=== PATIENT | female | born 1970 | race Caucasian/White ===

== ENCOUNTER → 2017-09-26 | Outpatient (CLI) | payer MEDICAID ==
[2017-09-26 20:26] LABS: Basophils # (A) 0.1 k/uL (0-0.2); Basophils % (A) 1 %; Eosinophils # (A) 0.1 k/uL (0-0.7); Eosinophils % (A) 1 %; HCT 41.1 % (34.0-46.0); HGB 11.9 gm/dL (11.4-16.0); Hypochromasia Marked; Lymphocytes # (A) 1.5 k/uL (1.0-4.8); Lymphocytes % (A) 19 %; MCH 23.9 pg (25.0-35.0); MCV 82.3 fL (80.0-100.0); Monocytes # (A) 0.3 k/uL (0-1.0); Monocytes % (A) 4 %; Neutrophils % (A) 74 %; Platelet Count 399 k/uL (150-450); RDW 15.8 % (11.5-15.5); WBC 8.1 k/uL (3.8-10.6)
[2017-09-26 20:29] LABS: ALT 18 U/L (9-52); AST 16 U/L (14-36); Albumin 4.1 g/dL (3.5-5.0); Alkaline Phosphatase 86 U/L (38-126); Anion Gap 11 mmol/L; Blood Urea Nitrogen 10 mg/dL (7-17); Calcium 9.5 mg/dL (8.4-10.2); Carbon Dioxide 26 mmol/L (22-30); Chloride 104 mmol/L (98-107); Cholesterol 171 mg/dL (<200); Glucose 106 mg/dL (74-99); HDL Cholesterol 43 mg/dL (40-60); LDL Cholesterol,Calculated 111 mg/dL (0-99); Potassium 4.4 mmol/L (3.5-5.1); Sodium 141 mmol/L (137-145); Total Bilirubin 0.6 mg/dL (0.2-1.3); Total Protein 7.1 g/dL (6.3-8.2); Triglycerides 85 mg/dL (<150)
[2017-09-26 20:42] LABS: T4, Free (Free Thyroxine) 1.48 ng/dL (0.78-2.19)
== END | disposition home or self-care (01) ==
LOC: MMGSC 12:30
PROVIDERS: ATTEND Family Medicine
DX: Z00.00 Encounter for general adult medical examination without abnormal findings (principal)
CPT/HCPCS: 36415; 80053; 80061; 84439; 84443; 85025

== ENCOUNTER → 2017-11-18 | Outpatient (CLI) | payer MEDICAID ==
[2017-11-18 11:41] LABS: Anisocytosis Slight; HCT 38.1 % (34.0-46.0); HGB 11.8 gm/dL (11.4-16.0); Hypochromasia Slight; MCH 24.3 pg (25.0-35.0); MCV 78.3 fL (80.0-100.0); Mean Platelet Volume 6.5; Microcytosis Slight; Platelet Count 445 k/uL (150-450); RBC 4.87 m/uL (3.80-5.40); RDW 16.2 % (11.5-15.5); WBC 9.6 k/uL (3.8-10.6)
[2017-11-18 11:53] LABS: Anion Gap 15 mmol/L; Blood Urea Nitrogen 9 mg/dL (7-17); Carbon Dioxide 20 mmol/L (22-30); Chloride 106 mmol/L (98-107); Glucose 99 mg/dL (74-99); Potassium 4.2 mmol/L (3.5-5.1); Sodium 141 mmol/L (137-145)
== END | disposition home or self-care (01) ==
LOC: LABWHC1 11:15
PROVIDERS: ATTEND Internal Medicine Clinical Cardiac Electrophysiology
DX: I47.1 Supraventricular tachycardia (principal)
CPT/HCPCS: 36415; 80048; 85027

== ENCOUNTER 2017-11-27 06:07 | Day surgery (SDC) | payer MEDICAID ==
[2017-11-21 10:49] VITALS: BMI 45.0
[~2017-11-27 06:07] MED LIST: DEXAMETHASONE SOD PHOSPHATE 10 MG/ML 1 ML VIAL IV ONE; MORPHINE SULFATE 4 MG/ML SYRINGE IV PRN; ONDANSETRON 4 MG/2 ML VIAL IVP ONE
[2017-11-27] MEDS: SODIUM CHLORIDE 0.9% 1,000 ML IV SCH (06:47)
[2017-11-27] MEDS ORDERED: diphenhydrAMINE 50 MG/ML 1 ML VIAL ONE (07:14)
[2017-11-27] MEDS ORDERED: PROPOFOL 10 MG/ML 20 ML VIAL IV ONE (07:14)
[2017-11-27] MEDS ORDERED: MORPHINE SULFATE 10 MG/ML SYRINGE ONE (07:14)
[2017-11-27] MEDS ORDERED: fentaNYL (PF) 50 MCG/ML 2 ML AMP ONE (07:14)
[2017-11-27] MEDS ORDERED: ISOPROTERENOL 250 MCG/1.25 ML SYR IV ONE (07:14)
[2017-11-27] MEDS ORDERED: MIDAZOLAM 2 MG/2 ML VIAL ONE (07:14)
[2017-11-27] MEDS ORDERED: HEPARIN SODIUM,PORCINE 10,000 UNIT/ML 1 ML VIAL ONE (07:14)
[2017-11-27] MEDS ORDERED: LIDOCAINE 2% INJ 20 MG/ML SQ ONE ×2 (08:00→11:48)
[2017-11-27] MEDS ORDERED: HEPARIN SODIUM (1,000 UNIT/ML) 1,000 UNIT in SODIUM CHLORIDE 0.9% 1,000 ML IRRIGATION ONE (10:19)
[2017-11-27] MEDS ORDERED: LACTATED RINGERS 1,000 ML IV ONE (13:56)
[2017-11-27] MEDS ORDERED: ACETAMINOPHEN TAB 325 MG TAB PO PRN (14:18)
[2017-11-27] MEDS ORDERED: ACETAMINOPHEN IV (For NPO) 1,000 MG in EMPTY BAG 1 BAG IVPB ONE (15:00)
--- NOTE | 2017-11-27 15:40 | CE ---
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 She has had several ER admissions for this condition and she is brought in for diagnostic EP study and SVT ablation. Patient is brought to the EP lab in a fasting state. Written informed consent was obtained prior to the procedure. The right and left groins were prepped and draped as per protocol; 1% lidocaine was used for local anesthesia. Both groins were prepped and draped as per protocol. Three venous sheaths were placed in the right femoral vein and one venous sheath in the left femoral vein. Via these, diagnostic catheters were placed in the heart (high right atrial catheter, HIS bundle catheter, RV catheter and CS catheter). Sinus cycle length 876 milliseconds. MO interval 150 milliseconds, QRS 86 milliseconds, QT 418 milliseconds. AH interval 67 milliseconds, HV interval 44 milliseconds. Sinus node recovery times of 600, 500, and 400 milliseconds were 1001, 1108 and 1063 milliseconds. Corresponding corrected sinus node recovery times were within normal limits. AV node Wenckebach block 310 milliseconds. Slow pathway was noted when pacing the high right atrium at 350 milliseconds, but SVT was not induced. VA Wenckebach block 340 milliseconds. AV node ERP 600/280 milliseconds and when pacing the coronary sinus, SVT was very easily inducible with straight pacing. The tachycardia cycle length was 370 milliseconds. Pacing from the ventricle resulted in termination of the tachycardia repeatedly. However, the tachycardia had a short septal time of less 60 milliseconds consistent with AV osito reentry. Therefore, the patient had clear evidence of antegrade slow pathway conduction as well as an SVT with a very short septal time of less than 60 milliseconds, but entrainment with the RV pacing was not possible and therefore initially a VAV response and a long PPI could not be demonstrated. However, later during the ablation, when she started experiencing more SVT, we were able to demonstrate a VAV response and confirm that this was reentry consistent with the diagnosis. In addition the post pacing interval was long. Initially a 4 mm tip ablation catheter was used, later we switched to an irrigated tip catheter. Finally, once again, we switched to a 4 mm tip guided catheter. Initially, slow pathway mapping was performed in the posterior septal area well below the coronary sinus with small fractionated electrograms noted here. RF ablation here resulted in elimination of slow pathway and SVT for about 10 minutes but thereafter it recurred. Next RF ablation was then applied, mapping was performed outside the floor of the coronary sinus os and RF ablation was applied here. Once again, elimination of slow pathway, but return within 10 minutes or so on Isuprel. RF ablation was applied at the roof of the coronary sinus and once again with a similar response with initial success followed by recurrence. Mapping was performed off the septum along the tricuspid anulus and once again RF ablation was applied at this site with a 4 mm tip ablation catheter. Since tachycardia was recurrent, we proved that this was AV osito reentry once again with a VAV response and a long post pacing interval in a short septal time. Mapping above the coronary sinus, above its roof demonstrated that there was somewhat of a cul-de-sac in that area and that was carefully mapped. In this area with mechanical pressure. junctional beats are noted. RF ablation was applied here but junctional rhythm could not be induced. Once again, transient success for 10 minutes and then recurrence of tachycardia was noted. At this point, intracardiac echocardiography was performed. The interatrial septum was identified. Left to right transseptal catheterization was performed. RA pressure was 12 1 mmHg, LV pressure was less than 13 mmHg. An irrigated tip catheter was placed in the left atrium and the left posterior septal area was mapped and RF ablation was applied here. However, at this site even transient success could not be achieved. Therefore, the catheter was removed, heparin was discontinued due and I went back into the right atrium for further mapping. Following this, the mid septal area was mapped, RF ablation was applied and this resulted in short episodes of AV osito reentry with the longer cycle length. Finally, RF ablation lesions were applied in areas of good electrograms in the mid septal as well as the junction of the mid and anterior septal region. Following that, the tachycardia was completely eliminated and could not be reinduced. AV node Wenckebach block at the end of this RF ablation (now with a 4 mm tip nonirrigated catheter), there was no evidence for slow pathway conduction and AV osito reentry could not be induced. Please note that when ablating the mid septal and anteroseptal areas, a 4 mm tip ablation catheter was used, not an irrigated tip catheter. Irrigated tip catheter was used closer to the coronary sinus and the left atrium. Thereafter, we could not induce AV osito reentry. However, with atrial extra stimulation as well as a straight pacing on high-dose Isuprel, we were able to induce any SVT with a concentric activation of the coronary sinus, but with a delayed electrograms in the HIS and the high right atrium. Therefore, the activation pattern was very different from the original tachycardia. In addition, this was a long RP tachycardia. Therefore, ventricular pacing maneuvers were performed to differentiate between atypical AV osito reentry versus coronary sinus atrial tachycardia. This tachycardia in the absence of Isuprel demonstrated AV node Wenckebach block phenomenon, 2) A VA AV response was noted. There was clear an acceleration of the HIS electrograms with V pacing as well as of the high right atrial electrograms, but not the coronary sinus os electrograms. However, since the AV node was accelerated to the ventricular pacing cycle length, the VA AV response proved that this was not atypical AV osito reentry. At the end of the procedure Isuprel was stopped. All catheters removed and she was transferred to observation/telemetry. RESULT: Diagnostic EP study revealin. 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 2. The slow pathway was in the mid septal/anteroseptal region, but ablation was performed in a stepwise manner as described above. Hence, the mapping ablation procedure took 5 hours because of the proximity of the slow pathway to the HIS bundle area, as well as mapping of the left and right atrium. The slow pathway was completely eliminated at the end of the procedure. 3. A second tachycardia was induced following successful ablation of AV osito reentry and it was proven that this was not atypical AV osito reentry. This was a long RP tachycardia , and with RV pacing VAAV response was noted, but this was not a targeted for ablation at this time. PLAN: I will treat her with metoprolol succinate only for 2 weeks and then discontinue this. If she continues to have episodes of palpitations, then she will be brought back later after about 6 weeks to allow for healing of the RF lesions, for mapping of the coronary sinus atrial tachycardia. I may have to access the coronary sinus from the subclavian route during that procedure. 325 mg of aspirin for one month, then stop MMODL / IJN: [id number] / [facility]
[2017-11-27] MEDS: HYDROcodone/APAP 5-325MG 1 EACH TAB PO PRN ×2 (15:51→20:07)
[2017-11-27] MEDS: LACTATED RINGERS 1,000 ML IV SCH ×2 (17:55→20:10)
[2017-11-28] MEDS: SODIUM CHLORIDE 0.9% 1,000 ML IV SCH (03:56)
[2017-11-28] MEDS ORDERED: LEVOTHYROXINE 125 MCG TAB PO SCH (06:30)
[2017-11-28 08:34] VITALS: RESP 18
[2017-11-28] MEDS ORDERED: ASPIRIN 325 MG TAB PO SCH (09:00)
[2017-11-28] MEDS ORDERED: METOPROLOL SUCCINATE (ER) 50 MG TAB.ER.24H PO SCH (09:00)
[2017-11-28 11:52] VITALS: BP 125/57; PULSE 84; TEMP 98.8
== END 2017-11-28 13:50 | disposition home or self-care (01) ==
LOC: CATHEP 06:07 → 3OBS 14:20 → CATHEP 11-28 13:50
PROVIDERS: ATTEND Internal Medicine Clinical Cardiac Electrophysiology
DX: I47.1 Supraventricular tachycardia (principal); I49.1 Atrial premature depolarization; I45.81 Long QT syndrome; E03.9 Hypothyroidism, unspecified; J45.909 Unspecified asthma, uncomplicated; E66.01 Morbid (severe) obesity due to excess calories; Z68.41 Body mass index [BMI] 40.0-44.9, adult; Z82.49 Family history of ischemic heart disease and other diseases of the circulatory system; Z79.890 Hormone replacement therapy; Z79.899 Other long term (current) drug therapy
CPT/HCPCS: 93462; 93623; 93662; 93613; 93653; 81025; C1894; C1769 ×3; C1730 ×2; C1732 ×2; C1759; C1893; J2001; J1644

== ENCOUNTER → 2018-04-16 | Outpatient (CLI) | payer MEDICAID ==
--- NOTE | 2018-04-16 18:50 | CONS ---
CONSULTATION DATE OF SERVICE: 04/16/2018 A 47-year-old lady has been evaluated in Sleep Center for possible obstructive sleep apnea-hypopnea syndrome. HISTORY OF PRESENT ILLNESS/SLEEP-WAKE EVALUATION: Patient usual sleep schedule from 8:00 p.m. until about 7:00 a.m. and on weekends from around 2 or 3:00 a.m. until 10:00 a.m. She snores [id number] and has episodes of awakenings with dry mouth. The patient has positive history of episodes of palpitations during the sleep in the past. During the day, she may have some problems with concentration. [place] Sleepiness Scale today is 5. PAST MEDICAL HISTORY: Positive for supraventricular tachycardia, which was treated with cardiac ablation in November of 2017 with episodes of atrial tachycardia after ablation, hypothyroidism, back problems. By echocardiogram slight increasing size of the right ventricle. PAST SURGICAL HISTORY: L4-L5 back surgery, diskectomy. MEDICATIONS: Metoprolol, Synthroid, Ventolin, Midrin, . SOCIAL HISTORY: Negative for smoking. Alcohol consumption rarely. FAMILY HISTORY: Hypertension, heart problems, hyperlipidemia, stroke, arthritis, sleep apnea, snoring, headaches, diabetes, thyroid problems. REVIEW OF SYSTEMS: Episodes of palpitations. Mild shortness of breath when she has episodes of tachycardia. Otherwise sometimes episodes of swelling of her legs. Otherwise negative. PHYSICAL EXAM: GENERAL lady without distress. VITAL SIGNS BP 131/81, HR 86, RR 16, height 5 feet 10 inches, weight 336 pounds, body mass index 48.2, temperature 98.2, oxygen saturation on room air 98%. HEENT PERRLA, EOMI, evaluation of oropharynx showed low position of soft palate, slight restriction of nasal breathing. Wide neck 16-1/2 inches in circumference. NECK Supple, no JVD. Thyroid is not palpable. LUNGS Clear to percussion and to auscultation. Good air exchange. No wheezing or rhonchi. HEART S1, S2 regular. No murmurs, gallops, or rubs. ABDOMEN Soft and nontender. Bowel sounds are present. No organomegaly appreciated. EXTREMITIES Tendency for swelling of the ankles, minimal up to 1+ bilaterally. No clubbing or cyanosis. 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 Cranial nerves 2 to 7 intact. There is no fasciculation or atrophy. noted. No focal deficits observed. IMPRESSION: 1. Snoring, low position of soft palate, wide neck, awakenings with dry mouth, possible obstructive sleep apnea-hypopnea syndrome. 2. Obesity, BMI 48.2. 3. History of supraventricular tachycardia, status post cardiac ablation. 4. History of episodes of atrial tachycardia after ablation. 5. History of asthma. 6. History of hypothyroidism on Synthroid supplement. 7. Status post L4-L5 diskectomy. PLAN: 1. Polysomnography for evaluation of patient's breathing during sleep. 2. CPAP/BiPAP titration if sleep study confirms obstructive sleep apnea-hypopnea syndrome. 3. Preferable position during sleep on the side. 4. No driving if patient feels any sleepiness. 5. I will see patient for follow up visit to explain results of testing and following plan. 6. Losing weight. Thank you very much for referring this patient for consultation. Sincerely, Massimo Marr MD, PhD, FAASM Diplomat of [place] Board of Medical Specialties [place] Board of Internal Medicine Community Youth Secretary of [facility] [place] MMODL / MARITZAN: [id number] /
== END | disposition home or self-care (01) ==
LOC: SLEEP 16:52
PROVIDERS: ATTEND Internal Medicine
DX: G47.33 Obstructive sleep apnea (adult) (pediatric) (principal); E66.9 Obesity, unspecified; Z68.42 Body mass index [BMI] 45.0-49.9, adult; Z87.09 Personal history of other diseases of the respiratory system; Z86.39 Personal history of other endocrine, nutritional and metabolic disease; Z79.899 Other long term (current) drug therapy; Z98.890 Other specified postprocedural states
CPT/HCPCS: 99211

== ENCOUNTER → 2018-04-24 | Outpatient (CLI) | payer MEDICAID ==
--- NOTE | 2018-04-24 13:46 | MM ---
Reason for exam: screening (asymptomatic). Baseline mammogram. History: Patient is nulliparous. Physical Findings: Nurse did not find any significant physical abnormalities on exam. MG 3D Screening Mammo W/Cad Bilateral CC and MLO view(s) were taken. XCCL view(s) were taken of the right breast. The breast tissue is heterogeneously dense. This may lower the sensitivity of mammography. Focal asymmetry in the left upper outer quadrant, likely benign. These results were verbally communicated with the patient and result sheet given to the patient on 04/24/18. ASSESSMENT: Probably benign, BI-RAD 3 RECOMMENDATION: Follow-up diagnostic mammogram of the left breast in 6 months.
== END ==
LOC: RADMAMWWP 12:58
PROVIDERS: ATTEND Family Medicine
DX: Z12.31 Encounter for screening mammogram for malignant neoplasm of breast (principal)
CPT/HCPCS: 77063; 77067

== ENCOUNTER → 2018-05-28 | Outpatient (CLI) | payer MEDICAID ==
--- NOTE | 2018-05-28 15:48 | PN ---
PROGRESS NOTE DATE OF SERVICE: 05/28/2018 48-year-old lady has been followed in Sleep Center to discuss results of the diagnostic polysomnogram and following plan. We discussed results of sleep studies in detail. Sleep study showed obstructive sleep apnea-hypopnea syndrome with apnea-hypopnea index 12.7, REM sleep 49.7 with oxygen desaturation to 83.8%. EMG showed 19.9 periodic limb movements per hour without significant amount of microarousals. Most of the night, patient was on the back position and she thinks that may be on the side position she will sleep better. Also she felt that maybe with losing weight her breathing feels improved. We discussed all possible options of our treatment including oral appliances and losing weight. Her [place] Sleepiness Scale today is 4. MEDICATIONS: Metoprolol, Synthroid, and Ventolin. PHYSICAL EXAM: lady without distress. BP 153/87, HR 65, RR 16, weight 334, temperature 98.1, oxygen saturation room air 98%. Oropharynx moderately low position of soft palate. ABDOMEN: Obese. Neck: Supple, no JVD. Thyroid is not palpable. LUNGS: Clear to percussion and to auscultation. Good air exchange. No wheezing or rhonchi. HEART: S1, S2 regular. No murmurs, gallops, or rubs. ABDOMEN: Obese. Soft and nontender. Bowel sounds are present. No organomegaly appreciated. EXTREMITIES No clubbing or cyanosis. 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 Cranial nerves 2 to 7 intact. There is no fasciculation or atrophy. noted. No focal deficits observed. IMPRESSION: 1. Obstructive sleep apnea-hypopnea syndrome, mild close to moderate range, severe in REM sleep. 2. Obesity. 3. History of supraventricular tachycardia. 4. Asthma. PLAN: 1. CPAP titration for correction of respiratory abnormalities during sleep. 2. Losing weight. 3. Sleep hygiene with regular time in bed for at least 8 hours. 4. No driving if feeling sleepiness. 5. I will see patient for followup visit after she was started on treatment with CPAP to evaluate her clinical response to treatment, compliance with treatment and make any necessary adjustments. Thank you very much for allowing me to participate in management of your patient. Sincerely, Massimo Marr MD, PhD, FAASM Diplomat of [place] [employer] of Medical Specialties [place] Board of Internal Medicine Director Loan of [facility] [place] [id number] / MARITZAN: [id number] /
== END ==
LOC: SLEEP 09:52
PROVIDERS: ATTEND Internal Medicine
DX: G47.33 Obstructive sleep apnea (adult) (pediatric) (principal); E66.9 Obesity, unspecified; J45.909 Unspecified asthma, uncomplicated; Z86.79 Personal history of other diseases of the circulatory system; Z79.899 Other long term (current) drug therapy

== ENCOUNTER → 2018-08-27 | Outpatient (CLI) | payer MEDICAID ==
--- NOTE | 2018-08-27 18:23 | PN ---
PROGRESS NOTE DATE OF SERVICE: 08/27/2018 This patient is a 48-year-old lady who has been followed in Sleep Center for treatment of obstructive sleep apnea-hypopnea syndrome. Recently the patient had a polysomnogram and CPAP titration, after which she received her CPAP unit. Today is her first time when she returns to Sleep Center with her CPAP machine after she started to use it. The patient was able to use CPAP equipment practically every night, with some discomfort in her nose and around nostrils secondary to slight irritation from the nasal pillow mask. She is using an AirFit P10 medium size. [place] Sleepiness Scale today is 4. I checked her CPAP unit. Most of the time the pressure is 10 cm of water. Usage is 30/30 nights and 24/30 nights for more than 4 hours. Average usage is 5.1 hours. Leak is 7 L/minute. Apnea-hypopnea index is only 0.5, which is absolutely perfect. MEDICATIONS: 1. Metoprolol. 2. Synthroid. 3. Ventolin. PHYSICAL EXAMINATION: GENERAL: A pleasant patient in no distress. VITAL SIGNS: BP 164/77, HR 84, RR 16, weight 343 pounds, temperature 98.3, oxygen saturation at room air 99%. HEENT: PERRLA, EOMI. Evaluation of oropharynx showed tongue protrudes midline. Low position of soft palate. Mallampati III to IV. NECK: Supple. No JVD. Thyroid is not palpable. LUNGS: Clear to percussion and to auscultation. Good air exchange. No wheezing or rhonchi. HEART: S1, S2 regular. No murmurs, gallops or rubs. ABDOMEN: Obese. EXTREMITIES: No clubbing or cyanosis. 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 Cranial nerves 2 to 7 intact. There is no fasciculation or atrophy. noted. No focal deficits observed. IMPRESSION: 1. Obstructive sleep apnea-hypopnea syndrome. Patient demonstrated great compliance with treatment, benefitting from treatment. 2. Slight problem with nasal pillow mask. 3. Obesity. 4. No periodic limb movements during titration. 5. History of supraventricular tachycardia, status post cardiac ablation. 6. History of asthma. 7. History of hypothyroidism. 8. Status post L4-L5 diskectomy. PLAN: 1. Patient will continue to use CPAP equipment every night. 2. Losing weight. 3. We will check different options to possibly change her nasal pillow mask to a different style of mask. She also may try to use [place] gel to the nostrils. 4. Sleep hygiene with regular time in bed for at least 7-1/2 hours. 5. No driving if feeling any sleepiness. Thank you very much for allowing me to participate in the management of your patient. Sincerely, Massimo Marr MD, PhD, FAASM Diplomat of [place] Board of Medical Specialties [place] Board of Internal Medicine Teacher Dancing of [facility] [place] MMODL / IJN: [id number] /
== END ==
LOC: SLEEP 16:33
PROVIDERS: ATTEND Internal Medicine
DX: G47.33 Obstructive sleep apnea (adult) (pediatric) (principal); E66.9 Obesity, unspecified; Z86.79 Personal history of other diseases of the circulatory system; Z98.890 Other specified postprocedural states; Z87.09 Personal history of other diseases of the respiratory system; Z99.89 Dependence on other enabling machines and devices; Z79.899 Other long term (current) drug therapy

== ENCOUNTER → 2018-10-23 | Outpatient (CLI) | payer MEDICAID ==
--- NOTE | 2018-10-23 10:22 | MM ---
Reason for exam: follow-up at short interval from prior study. Last mammogram was performed 6 months ago. History: Patient is nulliparous. Physical Findings: Nurse did not find any significant physical abnormalities on exam. MG 3D Diag Mammo W/Cad LT CC and MLO view(s) were taken of the left breast. Prior study comparison: April 24, 2018, bilateral MG 3d screening mammo w/cad. The breast tissue is heterogeneously dense. This may lower the sensitivity of mammography. No significant new findings when compared with previous films. These results were verbally communicated with the patient and result sheet given to the patient on 10/23/18. ASSESSMENT: Benign, BI-RAD 2 RECOMMENDATION: Return to routine screening mammogram schedule for both breasts. Back on schedule.
== END | disposition home or self-care (01) ==
LOC: RADMAMWWP 09:33
PROVIDERS: ATTEND Family Medicine
DX: R92.8 Other abnormal and inconclusive findings on diagnostic imaging of breast (principal)
CPT/HCPCS: 77061; 77065

== ENCOUNTER → 2019-01-01 | Outpatient (CLI) | payer MEDICAID ==
--- NOTE | 2019-01-01 21:34 | MR ---
EXAMINATION TYPE: MR knee LT wo con DATE OF EXAM: 01/01/2019 COMPARISON: None HISTORY: Pain in left knee TECHNIQUE: Multiplanar, multisequence imaging of the left knee is performed without IV contrast. FINDINGS: MEDIAL MENISCUS: Is a small amount of increased signal within the posterior horn of the medial menisc us amenable internal derangement or degenerative change. LATERAL MENISCUS: Increased signals within the anterior and posterior horns of the lateral meniscus c ould be related to internal derangement or degenerative change CRUCIATE LIGAMENTS: The anterior and posterior cruciate ligaments are intact and unremarkable. COLLATERAL LIGAMENTS: The medial collateral ligament and lateral collateral ligament complex are inta ct and unremarkable. EXTENSOR MECHANISM: Visualized quadriceps and patellar tendons are intact. EFFUSION: Small suprapatellar joint effusion is present POPLITEAL CYST: No popliteal/fregoso cyst. TRICOMPARTMENT SPACES: There is diffuse narrowing of the medial lateral joint spaces. Some thickening is through the patellofemoral joint space CARTILAGE: There is diffuse loss of articular cartilage. BONE MARROW SIGNAL: No focal abnormal marrow signal is appreciated. OTHER: No additional significant abnormality is appreciated. IMPRESSION: 1. Internal derangement or degenerative change anterior and posterior horn lateral meniscus and poste rior horn medial meniscus. 2. Diffuse osteoarthritic type degenerative thinning of the articular cartilage to the tricompartment spaces. 3. Small joint effusion
== END | disposition home or self-care (01) ==
LOC: RADMRIMAIN 18:37
PROVIDERS: ATTEND Orthopaedic Surgery
DX: M17.12 Unilateral primary osteoarthritis, left knee (principal)

== ENCOUNTER → 2019-01-15 | Outpatient (CLI) | payer MEDICAID ==
[2019-01-15 12:26] LABS: Anisocytosis Slight; Basophils # (A) 0.1 k/uL (0-0.2); Basophils % (A) 1 %; Eosinophils # (A) 0.1 k/uL (0-0.7); Eosinophils % (A) 1 %; HGB 11.5 gm/dL (11.4-16.0); Hypochromasia Moderate; Lymphocytes # (A) 1.7 k/uL (1.0-4.8); Lymphocytes % (A) 17 %; MCH 23.8 pg (25.0-35.0); MCV 76.9 fL (80.0-100.0); Mean Platelet Volume 6.7; Microcytosis Slight; Monocytes # (A) 0.5 k/uL (0-1.0); Monocytes % (A) 5 %; Neutrophils # (A) 7.9 k/uL (1.3-7.7); Neutrophils % (A) 76 %; Platelet Count 441 k/uL (150-450); RBC 4.81 m/uL (3.80-5.40); RDW 17.2 % (11.5-15.5); WBC 10.4 k/uL (3.8-10.6)
[2019-01-15 12:35] LABS: Potassium 4.7 mmol/L (3.5-5.1)
== END | disposition home or self-care (01) ==
LOC: LABPAT 11:05
PROVIDERS: ATTEND Orthopaedic Surgery
DX: Z01.818 Encounter for other preprocedural examination (principal); Z01.812 Encounter for preprocedural laboratory examination; M23.92 Unspecified internal derangement of left knee
CPT/HCPCS: 36415; 80051; 85025; 93005

== ENCOUNTER → 2019-05-18 | Outpatient (CLI) | payer MEDICAID ==
--- NOTE | 2019-05-20 15:05 | MM ---
Reason for exam: screening (asymptomatic). Last mammogram was performed 7 months ago. History: Patient is nulliparous. Physical Findings: A clinical breast exam by your physician is recommended on an annual basis and results should be correlated with mammographic findings. MG 3D Screening Mammo W/Cad Bilateral CC and MLO view(s) were taken. Prior study comparison: October 23, 2018, left breast MG 3d diag mammo w/cad LT. April 24, 2018, bilateral MG 3d screening mammo w/cad. There are scattered fibroglandular densities. No significant changes when compared with prior studies. ASSESSMENT: Benign, BI-RAD 2 RECOMMENDATION: Routine screening mammogram of both breasts in 1 year.
== END | disposition home or self-care (01) ==
LOC: RADMAMWWP 14:16
PROVIDERS: ATTEND Family Medicine
DX: Z12.31 Encounter for screening mammogram for malignant neoplasm of breast (principal)
CPT/HCPCS: 77063; 77067

== ENCOUNTER → 2020-03-14 | Outpatient (CLI) | payer MEDICAID ==
[2020-03-15 01:26] LABS: T4, Free (Free Thyroxine) 1.2 ng/dL (0.80-1.80)
== END | disposition home or self-care (01) ==
LOC: LABWHC1 14:54
PROVIDERS: ATTEND Family Medicine
DX: E03.9 Hypothyroidism, unspecified (principal)
CPT/HCPCS: 36415; 84439; 84443

== ENCOUNTER → 2020-06-02 | Outpatient (CLI) | payer MEDICAID ==
--- NOTE | 2020-06-06 08:45 | MM ---
Reason for exam: screening (asymptomatic). Last mammogram was performed 1 year ago. History: Patient is nulliparous. Physical Findings: A clinical breast exam by your physician is recommended on an annual basis and results should be correlated with mammographic findings. MG 3D Screening Mammo W/Cad Bilateral CC and MLO view(s) were taken. Prior study comparison: May 18, 2019, bilateral MG 3d screening mammo w/cad. October 23, 2018, left breast MG 3d diag mammo w/cad LT. The breast tissue is heterogeneously dense. This may lower the sensitivity of mammography. Finding: There is a round mass in the right breast. Asymmetric breast tissue left upper outer quadrant. No significant changes in finding since May 18, 2019 and October 23, 2018. ASSESSMENT: Benign, BI-RAD 2 RECOMMENDATION: Routine screening mammogram of both breasts in 1 year.
== END | disposition home or self-care (01) ==
LOC: RADMAMWWP 09:06
PROVIDERS: ATTEND Family Medicine
DX: Z12.31 Encounter for screening mammogram for malignant neoplasm of breast (principal)
CPT/HCPCS: 77063; 77067

== ENCOUNTER → 2020-08-02 | Outpatient (CLI) | payer MEDICAID | END | disposition home or self-care (01) | LOC: LABWHC1 12:52 | PROVIDERS: ATTEND Nurse Practitioner Adult Health | DX: E03.9 Hypothyroidism, unspecified (principal) | CPT/HCPCS: 36415; 84443; 84481 ==

== ENCOUNTER → 2021-06-06 | Outpatient (CLI) | payer OTHER ==
--- NOTE | 2021-06-06 10:46 | MM ---
Reason for exam: screening (asymptomatic). Last mammogram was performed 1 year ago. History: Patient is nulliparous. Physical Findings: A clinical breast exam by your physician is recommended on an annual basis and results should be correlated with mammographic findings. MG 3D Screening Mammo W/Cad Bilateral CC, MLO, and XCCL view(s) were taken. Prior study comparison: June 02, 2020, bilateral MG 3d screening mammo w/cad. May 18, 2019, bilateral MG 3d screening mammo w/cad. October 23, 2018, left breast MG 3d diag mammo w/cad LT. April 24, 2018, bilateral MG 3d screening mammo w/cad. There is chronic nodularity in the right breast. Focal asymmetry left upper outer quadrant, stable. No significant changes when compared with prior studies. ASSESSMENT: Benign, BI-RAD 2 RECOMMENDATION: Routine screening mammogram of both breasts in 1 year.
== END | disposition home or self-care (01) ==
LOC: RADMAMWWP 10:08
PROVIDERS: ATTEND Family Medicine
DX: Z12.31 Encounter for screening mammogram for malignant neoplasm of breast (principal)
CPT/HCPCS: 77063; 77067

== ENCOUNTER 2022-04-24 05:56 | Day surgery (SDC) | payer OTHER ==
[~2022-04-24 05:56] MED LIST changes: -DEXAMETHASONE SOD PHOSPHATE 10 MG/ML 1 ML VIAL IV ONE; +LACTATED RINGERS 1,000 ML IV SCH; +LIDOCAINE 1% (10MG/ML) FOR IV START INTRADERMA PRN; -MORPHINE SULFATE 4 MG/ML SYRINGE IV PRN; -ONDANSETRON 4 MG/2 ML VIAL IVP ONE
[2022-04-24 06:29] VITALS: TEMP 98.5
[2022-04-24] MEDS ORDERED: PROPOFOL 10 MG/ML 20 ML VIAL IV ONE (07:02)
--- NOTE | 2022-04-24 07:24 | P.PCN ---
Date of Procedure: 04/24/22 Procedure(s) Performed: BRIEF HISTORY: Patient is a 51-year-old pleasant white female scheduled for an elective colonoscopy as a part of screening for colorectal neoplasia. PROCEDURE PERFORMED: Colonoscopy. PREOPERATIVE DIAGNOSIS: Screening for colon cancer. IV sedation per Anesthesia. PROCEDURE: After informed consent was obtained, the patient, was brought into the endoscopy unit. IV sedation was administered by Anesthesia under continuous monitoring. Digital rectal examination was normal. Initially the Olympus CF-160 flexible video colonoscope was then inserted in the rectum, gradually advanced into the cecum without any difficulty. Careful examination was performed as the scope was gradually being withdrawn. Ileocecal valve and the appendiceal orifice were visualized and appeared normal. Prep was excellent. Mucosa of the cecum, ascending colon, transverse colon, descending colon, sigmoid colon, and rectum appeared normal. Retroflexion was performed in the rectum and no lesions were seen. The patient tolerated the procedure well. IMPRESSION: Normal-appearing colon from rectum to cecum with no evidence of colorectal neoplasia . RECOMMENDATIONS: Findings of this examination were discussed with the patient as well as a family. She was advised to have a repeat screening colonoscopy in 10 years..
[2022-04-24 07:34] VITALS: RESP 20
[2022-04-24 07:44] VITALS: BP 155/85; PULSE 61
== END 2022-04-24 08:23 ==
LOC: ORWHC2ENDO 05:56
PROVIDERS: ATTEND Internal Medicine Gastroenterology
DX: Z12.11 Encounter for screening for malignant neoplasm of colon (principal); I47.1 Supraventricular tachycardia; J45.909 Unspecified asthma, uncomplicated; E07.9 Disorder of thyroid, unspecified; Z98.890 Other specified postprocedural states; Z79.890 Hormone replacement therapy; Z79.899 Other long term (current) drug therapy
CPT/HCPCS: 81025; J2704; G0121; 45378

== ENCOUNTER → 2022-05-23 | Outpatient (CLI) | payer OTHER ==
--- NOTE | 2022-05-23 11:24 | P.SLEEP ---
History of Present Illness DATE: 05/23/2022 CONSULTATION/NEW PATIENT EVALUATION HISTORY OF PRESENT ILLNESS/SLEEP-WAKE EVALUATION: 52year old lady had been evaluated in the sleep center for obstructive sleep apnea hypopnea syndrome. Last time I show patient to more than 3 years ago. Patient continued to use his CPAP equipment every night without significant problems. I checked CPAP unit. Pressure in the range 5-12, average 6.7 cm of water. Usage is 100% of nights more than 4 hours, average 6.3 hours per night. Leak is 1 L/m which is perfect. Apnea hypopnea index of only 0.1 which is perfect. Patient lost about 50 pounds since last visit. SLEEP SCHEDULE: Usually sleep schedule on weekdays from 2 AM until 10 AM, during days off from 4 AM until 11 AM. 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 FALLING ASLEEP: No problems with falling asleep. DURING SLEEP: No snoring and awakenings while on treatment with CPAP during sleep. No history of hypnogogical hallucinations, sleep paralysis, or cataplexy. DURING THE DAY/WAKE STATE: No significant excessive daytime sleepiness. [place] sleepiness scale is 3. Patient really may take 1 nap. PAST MEDICAL HISTORY: atrial tachycardia. Asthma, hypothyroidism. PAST SURGICAL HISTORY: Left knee arthroscopy for meniscus problems, L4-L5 discectomy. MEDICATIONS: Levothyroxine 137 g once a day, metoprolol extended release 50 mg once a day, flecainide 100 mg once a day, albuterol. SOCIAL HISTORY: Negative for smoking, alcohol consumption occasional. FAMILY HISTORY: Hypertension, hyperlipidemia, sleep apnea, diabetes, thyroid problems.. REVIEW OF SYSTEMS: No snoring or awakenings on CPAP. No fevers. No double vision. No recent chest pain. No shortness of breath. No abdominal pain. No bleeding episodes. No blood in urine. No seizure episodes. PHYSICAL EXAMINATION: GENERAL: A pleasant patient without any distress. VITAL SIGNS: BP 148/79 , HR 63 , RR 14 , weight 294.8 pounds, height 5 foot 10 and 2/3 inches, body mass index 41.4 . HEENT: PERRLA, EOMI. Evaluation of oropharynx showed tongue protrudes midline, low position of soft palate Mallampati 3-4. NECK: Supple. No JVD. Thyroid is not palpable.. LUNGS: Clear to percussion and to auscultation. Good air exchange. No wheezing or rhonchi. HEART: S1, S2 regular. No murmurs, gallops or rubs. ABDOMEN: Soft and nontender. Bowel sounds are present. No organomegaly appreciated. EXTREMITIES: No clubbing or cyanosis. MANAGER OF FINANCIAL PLANNING: Awake, alert, and oriented x3. Cranial nerves 2 to 7 intact. There is no fasciculation or atrophy noted. No focal deficits observed. ASSESSMENT: 1. Obstructive sleep apnea-hypopnea syndrome. Patient continued to use his CPAP equipment every night for the whole night. Normal respiration on CPAP. 2. Obesity body mass index 41.4, patient lost about 50 pounds since previous visit. 3 episodes of atrial tachycardia. 4. Status post cardiac ablation. 5 asthma. 6. Hypothyroidism. 7. Status post left knee arthroscopic surgery for meniscus problems. 8. Status post L4-L5 discectomy. 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 PLAN: 1. Patient will continue to use CPAP equipment every night for the whole night 2. Prescription for all necessary CPAP supplies including nasal pillow mask, tube, filters, humidifier chamber was written and sent to [employer] [facility]. 3. Preferable position during sleep on the side. 4. No driving if patient feels any sleepiness. Patient is aware of civil and criminal liability for unsafe driving. 5. Sleep hygiene with regular sleep time for at least 7.5-8 hours. 6. Continue losing weight. 7. Follow-up visit in 6 months. Thank you very much for referring this patient for consultation. Sincerely, Massimo Marr MD, PhD, FAASM. Diplomat of [place] [employer], Sleep Medicine Board by [place] [employer] [place] [employer] Process Design Chemical Engineer of [facility] Past Medical History Past Medical History: Asthma, Sleep Apnea/CPAP/BIPAP, Supraventricular Tachycardia (SVT), Thyroid Disorder Additional Past Medical History / Comment(s): USES CPAP History of Any Multi-Drug Resistant Organisms: None Reported Past Surgical History: Cardiac Ablation Additional Past Surgical History / Comment(s): l3-L4 discetomy. LEFT KNEE ARTHROSCOPY Past Anesthesia/Blood Transfusion Reactions: No Reported Reaction Past Psychological History: No Psychological Hx Reported Smoking Status: Never smoker Past Alcohol Use History: None Reported Past Drug Use History: None Reported Medications and Allergies Home Medications Medication Instructions Recorded Confirmed Type Albuterol Inhaler [Ventolin Hfa 1 - 2 puff INHALATION Q4H PRN 11/21/17 04/24/22 History Inhaler] Metoprolol Succinate (ER) [Toprol 50 mg PO QAM 11/21/17 04/24/22 History Xl] Flecainide Acetate [Tambocor] 100 mg PO DIRECTED PRN 01/26/19 04/24/22 History Levothyroxine Sodium 137 mcg PO QAM 04/23/22 04/24/22 History Allergies Allergy/AdvReac Type Severity Reaction Status Date / Time No Known Allergies Allergy Verified 04/24/22 06:22 Sleep Note - Sleep Note Sleep Note: Temperature: Pulse Rate: Respiratory Rate: Blood Pressure: SpO2: Height: Weight: BMI: Neck Circumference:
== END | disposition home or self-care (01) ==
LOC: SLEEP 10:31
PROVIDERS: ATTEND Internal Medicine
DX: G47.33 Obstructive sleep apnea (adult) (pediatric) (principal); E66.9 Obesity, unspecified; R00.0 Tachycardia, unspecified; J45.909 Unspecified asthma, uncomplicated; E03.9 Hypothyroidism, unspecified; Z98.890 Other specified postprocedural states; Z68.41 Body mass index [BMI] 40.0-44.9, adult
CPT/HCPCS: 99211

== ENCOUNTER → 2022-06-07 | Outpatient (CLI) | payer OTHER ==
--- NOTE | 2022-06-10 20:39 | MM ---
Reason for Exam: Screening (asymptomatic). Last screening mammogram was performed 12 month(s) ago. Patient History: Menarche at age 12. Patient has no children. Risk Values: Soheila 5 year model risk: 1.2%. NCI Lifetime model risk: 10.6%. Prior Study Comparison: 05/18/2019 Bilateral Screening Mammogram, [facility]. 06/02/2020 Bilateral Screening Mammogram, [facility]. 06/06/2021 Bilateral Screening Mammogram, [facility]. Tissue Density: The breast tissue is heterogeneously dense. This may lower the sensitivity of mammography. Findings: Analyzed By CAD. Cardiac nodularity lateral right breast and medial left breast. A few scattered punctate subareolar right breast microcalcifications are typically benign. There is no suspicious group of microcalcifications or new suspicious mass in either breast. Overall Assessment: Benign, BI-RAD 2 Management: Screening Mammogram of both breasts in 1 year. 1. Patient should continue monthly self breast exams. 2. A clinical breast exam by your physician is recommended on an annual basis. 3. This exam should not preclude additional follow-up of suspicious palpable abnormalities. Electronically signed and approved by: Leo Oliver M.D. Radiologist
== END | disposition home or self-care (01) ==
LOC: RADMAMWWP 11:15
PROVIDERS: ATTEND Family Medicine
DX: Z12.31 Encounter for screening mammogram for malignant neoplasm of breast (principal)
CPT/HCPCS: 77063; 77067

== ENCOUNTER → 2023-01-29 | Outpatient (CLI) | payer OTHER ==
[2023-01-29 11:01] LABS: ALT 14 U/L (4-34); AST 17 U/L (14-36); African American GFR (CKD) >90 (>60 ml/min/1.73 sqM); Albumin 4.2 g/dL (3.5-5.0); Albumin/Globulin Ratio 1.4; Alkaline Phosphatase 69 U/L (38-126); Anion Gap 11 mmol/L; Blood Urea Nitrogen 14 mg/dL (7-17); Calcium 9.1 mg/dL (8.4-10.2); Carbon Dioxide 24 mmol/L (22-30); Chloride 106 mmol/L (98-107); Globulin 2.9 g/dL; Glucose 97 mg/dL (74-99); Non-African American GFR(CKD) >90 (>60 ml/min/1.73 sqM); Potassium 4.1 mmol/L (3.5-5.1); Sodium 141 mmol/L (137-145); Total Bilirubin 0.5 mg/dL (0.2-1.3); Total Protein 7.1 g/dL (6.3-8.2)
[2023-01-29 11:13] LABS: T4, Free (Free Thyroxine) 1.34 ng/dL (0.78-2.19)
[2023-01-29 11:29] LABS: Basophils # (A) 0.1 k/uL (0-0.2); Basophils % (A) 1 %; Eosinophils # (A) 0.1 k/uL (0-0.7); Eosinophils % (A) 2 %; HCT 39.1 % (34.0-46.0); HGB 12.7 gm/dL (11.4-16.0); Lymphocytes # (A) 1.7 k/uL (1.0-4.8); Lymphocytes % (A) 28 %; MCH 26.8 pg (25.0-35.0); MCHC 32.4 g/dL (31.0-37.0); MCV 82.7 fL (80.0-100.0); Mean Platelet Volume 7.6; Monocytes # (A) 0.3 k/uL (0-1.0); Monocytes % (A) 4 %; Neutrophils # (A) 3.8 k/uL (1.3-7.7); Neutrophils % (A) 64 %; Platelet Count 353 k/uL (150-450); RBC 4.73 m/uL (3.80-5.40); RDW 14.9 % (11.5-15.5)
[2023-01-29 21:45] LABS: Chol/HDL Ratio 4.36 Ratio; LDL Cholesterol,Calculated 135.7 mg/dL (0.0-131.0); VLDL Calculation 18.38 mg/dL (5.00-40.00)
== END | disposition home or self-care (01) ==
LOC: LABWHC1 09:52
PROVIDERS: ATTEND Family Medicine
DX: Z00.00 Encounter for general adult medical examination without abnormal findings (principal)
CPT/HCPCS: 36415; 80053; 80061; 83036; 84439; 84443; 85025

== ENCOUNTER → 2023-07-09 | Outpatient (CLI) | payer OTHER ==
--- NOTE | 2023-07-09 14:56 | P.PN ---
Subjective DATE: 07/09/2023 FOLLOW UP VISIT. Patient with obstructive sleep apnea hypopnea syndrome return to sleep center for follow-up visit. Information from previous visit have been reviewed. Patient is using PAP equipment every night for the whole night, getting PAP supplies in time. Sometimes in the middle of the night pressure in CPAP unit significantly goes down. CPAP unit is old. [place] sleepiness scale is 4, which is normal. I checked information from PAP unit and discussed it with patient in details. PAP unit pressure 5-12.2, average 7.5 cm H2O. Usage is 100% and 97 % for more then 4 hours, average 5.5 hours per night. Leak is normal 1.1 l/m. Apnea Hypopnea Index is perfect 0.1. MEDICATIONS:1. Levothyroxine 137 g once a day 2. Metoprolol 50 mg once a day 3. Albuterol 4. Flecainide During physical exam: GENERAL: A pleasant patient without any distress. VITAL SIGNS: BP 127/80, HR 87, RR 18 , weight 314.8, temperature 98.0, oxygen saturation at room air 99 % . HEENT: PERRLA, EOMI.low position of soft palate, Mallapati 3-4 . NECK: Supple. No JVD. LUNGS: Clear to percussion and to auscultation. Good air exchange. No wheezing or rhonchi. HEART: S1, S2 regular. ABDOMEN: Soft and nontender. Slightly obese EXTREMITIES: No clubbing or cyanosis. WINDOW COVERING SALES CONSULTANT: Awake, alert, and oriented x3. No focal deficit. I changed ramp from automatic to 15 minutes, there is a possibility of that time ramp started in the middle of the night and patient feels not enough pressure that moment. Impressions: 1. Obstructive sleep apnea-hypopnea syndrome. Patient demonstrated great compliance with treatment, benefiting from treatment. Patient feels that the pressure in CPAP unit drops down in the middle of the night. 2. Obesity, patient increased to wait and 20 pounds comparing to the previous visit. 3. History of episodes of atrial tachycardia. 4. Status post cardiac ablation. 5. Asthma. 6. Hypothyroidism. 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 8. Status post left knee arthroscopic surgery for meniscus problems. 9. Status post L4-L5 discectomy. Plan: 1. Continue using PAP equipment every night for the whole night. 2. To change air filter at least 1-2 times per month. 3. Prescription to replace CPAP unit. 4. Advised patient to remove all remaining water from humidifier canister daily and make it dry after each usage. Refill canister with fresh distilled water before each usage. 5. Sleep hygiene with regular time in bed for at least 8 hours. 6. Precautions related to driving. No driving if feel any sleepiness. 7. I will maintain prescription for PAP supplies including mask, tube, filters. 8. Follow up visit in 30-90 days off the patient will get new CPAP unit to evaluate compliance with treatment and clinical response on treatment.. 9. Watching and losing weight. Thank you very much for allowing me to participate in the management of your patient. Massimo Marr MD, PhD, FAASM. Diplomat of [place] [employer], Sleep Medicine Board by [place] [employer] Shared Services And Outsourcing Manager of [facility] [place]
== END ==
LOC: 3 N SLEEP 14:04
PROVIDERS: ATTEND Internal Medicine
DX: G47.33 Obstructive sleep apnea (adult) (pediatric) (principal); E66.9 Obesity, unspecified; E03.9 Hypothyroidism, unspecified; J45.909 Unspecified asthma, uncomplicated; Z86.79 Personal history of other diseases of the circulatory system; Z98.890 Other specified postprocedural states; Z99.89 Dependence on other enabling machines and devices; Z79.890 Hormone replacement therapy; Z79.899 Other long term (current) drug therapy
CPT/HCPCS: 99212

== ENCOUNTER → 2023-07-09 | Outpatient (CLI) | payer OTHER ==
--- NOTE | 2023-07-11 12:02 | MM ---
Reason for Exam: Screening (asymptomatic). Last mammogram was performed 1 year(s) and 1 month(s) ago. Patient History: Menarche at age 12. Patient has no children. Premenopausal. Last menstrual period: 06/11/2023 Risk Values: Soheila 5 year model risk: 1.3%. NCI Lifetime model risk: 10.5%. Prior Study Comparison: 04/24/2018 Bilateral Screening Mammogram, [facility]. 10/23/2018 Left Diagnostic Mammogram, [facility]. 05/18/2019 Bilateral Screening Mammogram, [facility]. 06/02/2020 Bilateral Screening Mammogram, [facility]. 06/06/2021 Bilateral Screening Mammogram, [facility]. 06/07/2022 Bilateral MG 3D screening mammo w/cad, [facility]. Tissue Density: The breast tissue is heterogeneously dense. This may lower the sensitivity of mammography. Findings: Analyzed By CAD. There is no suspicious group of microcalcifications or new suspicious mass. Overall Assessment: Negative, BI-RAD 1 Management: Screening Mammogram of both breasts in [address] [facility] will attempt to contact patient to return for supplemental views and ultrasound if indicated. Patient should continue monthly self-breast exams. A clinical breast exam by your physician is recommended on an annual basis. This exam should not preclude additional follow-up of suspicious palpable abnormalities. Note on Soheila scores and lifetime risk: 1. A Soheila score greater than 3% is considered moderate risk. If this is the case, consider specialist referral to assess eligibility for a risk reducing agent. 2. If overall lifetime risk for the development of breast cancer is 20% or higher, the patient may qualify for future screening with alternating mammogram and breast MRI. Electronically signed and approved by: Ulices Velez DO
== END | disposition home or self-care (01) ==
LOC: RADMAMWWP 07:07
PROVIDERS: ATTEND Family Medicine
DX: Z12.31 Encounter for screening mammogram for malignant neoplasm of breast (principal)
CPT/HCPCS: 77063; 77067

== ENCOUNTER → 2023-10-23 | Outpatient (CLI) | payer BC ==
[2023-10-23 15:16] VITALS: BP 140/85; PULSE 74; RESP 12; TEMP 97.7
--- NOTE | 2023-10-23 15:36 | P.PN ---
Subjective DATE: 10/23/2023 FOLLOW UP VISIT. Patient with obstructive sleep apnea hypopnea syndrome return to sleep center for follow-up visit. Information from previous visit have been reviewed. This is first visit after patient received new CPAP unit. Patient is using PAP equipment every night for the whole night, getting PAP supplies in time. The patient does not have significant problems with the mask, PAP unit and humidification. [place] sleepiness scale is 2. I checked information from PAP unit. PAP unit pressure 5-12, average 8.1 cm H2O. Usage is 100% for more then 4 hours, average 5.8 hours per night. Leak is 1 l/m, which is in acceptable range. Apnea Hypopnea Index is 0.2, which is normal. MEDICATIONS:1. Levothyroxine 137 mcg once a day 2. Metoprolol 50 mg once a day 3. Albuterol 4. Flecainide During physical exam: GENERAL: A pleasant patient without any distress. VITAL SIGNS: Please see below. HEENT: PERRLA, EOMI.low position of soft palate, Mallapati 3-4 . NECK: Supple. No JVD. LUNGS: Clear to percussion and to auscultation. Good air exchange. No wheezing or rhonchi. HEART: S1, S2 regular. ABDOMEN: Soft and nontender. Obese EXTREMITIES: No clubbing or cyanosis. TECHNICAL SUPPORT ENGINEER: Awake, alert, and oriented x3. No focal deficit. Impressions: 1. Obstructive sleep apnea-hypopnea syndrome. Patient demonstrated great compliance with treatment, benefiting from treatment. 2. Obesity. 3. Asthma. 4. History of episodes of atrial fibrillation. 5. S/p cardiac ablation. 6. Hypothyroidism. 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 8. Status post left knee arthroscopic surgery for meniscus problems. 9. Status post L4-L5 discectomy. Plan: 1. Continue using PAP equipment every night for the whole night. 2. To change air filter at least 1-2 times per month. 3. PAP unit should stay lower then position of the head. 4. Advised patient to remove all remaining water from humidifier canister daily and make it dry after each usage. Refill canister with fresh distilled water before each usage. 5. Sleep hygiene with regular time in bed for at least 8 hours. 6. Precautions related to driving. No driving if feel any sleepiness. 7. I will maintain prescription for PAP supplies including mask, tube, filters. 8. Watching and losing weight. 9.Follow up visit in 6 months or earlier if patient has any problems. Thank you very much for allowing me to participate in the management of your patient. Massimo Marr MD, PhD, FAASM. Diplomat of [place] Board [employer] Sleep Medicine, Sleep Medicine Board by [place] [employer] Medicine Clinical Research Administrator of [facility] [place] Objective - Vital Signs Vital signs: Vital Signs Temp 97.7 F 10/23/23 15:13 Pulse 74 10/23/23 15:13 Resp 12 10/23/23 15:13 BP 140/85 10/23/23 15:13 Pulse Ox 100 10/23/23 15:13 FiO2 Intake & Output 10/22/23 10/23/23 10/23/23 18:59 06:59 18:59 Weight 143.335 kg
== END ==
LOC: 3 N SLEEP 14:56
PROVIDERS: ATTEND Internal Medicine
DX: G47.33 Obstructive sleep apnea (adult) (pediatric) (principal); E66.9 Obesity, unspecified; J45.909 Unspecified asthma, uncomplicated; E03.9 Hypothyroidism, unspecified; I48.91 Unspecified atrial fibrillation; T81.89XA Other complications of procedures, not elsewhere classified, initial encounter; G89.18 Other acute postprocedural pain; Z98.890 Other specified postprocedural states; Z99.89 Dependence on other enabling machines and devices; Z79.890 Hormone replacement therapy; Z79.899 Other long term (current) drug therapy; Z68.42 Body mass index [BMI] 45.0-49.9, adult
CPT/HCPCS: 99212

== ENCOUNTER → 2024-06-30 | Outpatient (CLI) | payer BC ==
--- NOTE | 2024-07-01 20:37 | MR ---
EXAMINATION TYPE: MRI left ankle without IV contrast DATE OF EXAM: 06/30/2024 COMPARISON: Radiographs 06/30/2024 HISTORY: Left ankle/foot pain, medial aspect x2 years. Standard multiplanar, multisequence MRI departmental protocol Multiplanar, multisequence images of the left ankle were acquired without contrast. FINDINGS: Minimal Achilles tendinopathy. Tibialis posterior tendinopathy with mild multifocal intrasubstance split tearing and mild/moderate t enosynovitis, greatest just proximal to the navicular. Remaining flexor tendons are intact. Mild peroneus longus and brevis tenosynovitis without tear. Extensor tendons are intact. Syndesmotic ligaments are intact. Marked thinning of the anterior talofibular and calcaneofibular ligaments which may relate to chronic injury. Posterior talofibular ligament is intact. Superficial and deep deltoid ligaments are without tear. Mineralization along the deep deltoid ligame nt likely related to old injury. Sinus tarsi fat is preserved. Mild thickening of the middle cord of the plantar fascia most consisten t with chronic fasciitis. Negative for acute fracture or marrow placement. Low-level bone marrow edema in the proximal cuboid. Mild degenerative changes of the midfoot. Accessory navicular without bone marrow edema. Plantar calc aneal spur. Talar dome is intact. No significant joint effusion. Musculature is within normal limits. Generalized subcutaneous edema about the foot and ankle without a focal fluid collection. IMPRESSION: 1. Tibialis posterior tendinopathy with superimposed mild multifocal intrasubstance split tearing and tenosynovitis. 2. Mild peroneus longus and brevis tenosynovitis without tear. 3. Low-level bone marrow edema in the cuboid, potentially degenerative/contusive. Negative for fractu re. 4. Thinning of the anterior talofibular and calcaneofibular ligaments which may relate to chronic inj uries. 5. Mild chronic plantar fasciitis. 6. Mild Achilles tendinopathy. [facility], , 07/01/2024 8:34 PM
== END ==
LOC: RADMRIMAIN 21:45
PROVIDERS: ATTEND Orthopaedic Surgery
DX: M65.972 Unspecified synovitis and tenosynovitis, left ankle and foot (principal); M72.2 Plantar fascial fibromatosis; R60.9 Edema, unspecified

== ENCOUNTER → 2024-11-18 | Outpatient (CLI) | payer BC ==
[2024-11-18 13:16] VITALS: BP 151/81; PULSE 88; RESP 16; TEMP 97.8
--- NOTE | 2024-11-18 13:44 | P.PROGSL ---
Subjective DATE: 11/18/2024 FOLLOW UP VISIT. Patient with obstructive sleep apnea hypopnea syndrome return to sleep center for follow-up visit. Information from previous visit have been reviewed. Patient is using PAP equipment every night for the whole night, getting PAP supplies in time. The patient does not have significant problems with the mask, PAP unit and humidification. [place] sleepiness scale is 3, which is normal. I checked information from PAP unit. PAP unit pressure 5-12, average 9.4 cm H2O. Usage is 100% for more then 4 hours, average 5.3 hours per night. Leak is 2 l/m, which is in great range. Apnea Hypopnea Index is 0.1, which is perfect. MEDICATIONS have been reviewed, please see below. During physical exam: GENERAL: A pleasant patient without any distress. VITAL SIGNS: Please see below, weight is 332 lbs. HEENT: PERRLA, EOMI.low position of soft palate, Mallapati, 3-4. NECK: Supple. No JVD. LUNGS: Clear to percussion and to auscultation. Good air exchange. No wheezing or rhonchi. HEART: S1, S2 regular. ABDOMEN: Soft and nontender. Obese EXTREMITIES: No clubbing or cyanosis. PLASTIC TOP ASSEMBLER: Awake, alert, and oriented x3. No focal deficit. Impressions: 1. Obstructive sleep apnea-hypopnea syndrome. Patient demonstrated great compliance with treatment, benefiting from treatment. 2. Obesity, BMI 47.9. 3. History of atrial fibrillation, no recent episodes. 4. Status post cardiac ablation. 5. Hypothyroidism. 6. Asthma. 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 8. Status post L4-L5 discectomy. 9. Status post left knee arthroscopic surgery for meniscus problems. Plan: 1. Continue using PAP equipment every night for the whole night. 2. Sleep hygiene with regular time in bed for at least 7.5-8 hours 3. PAP unit should stay lower then position of the head. 4. Advised patient to remove all remaining water from humidifier canister daily and make it dry after each usage. Refill canister with fresh distilled water before each usage. 5. Watching and losing weight. 6. Precautions related to driving. No driving if feel any sleepiness. 7. I will maintain prescription for PAP supplies including mask, tube, filters. 8. Follow up visit in 8 months or earlier if patient has any problems. Thank you very much for allowing me to participate in the management of your patient. Massimo Marr MD, PhD, FAASM. Diplomat of [place] [employer], Sleep Medicine Board by [place] [employer] Community Engagement Representative of [facility] [place] Objective - Vital Signs Vital Signs: Vital Signs Temp 97.8 F 11/18/24 13:13 Pulse 88 11/18/24 13:13 Resp 16 11/18/24 13:13 BP 151/81 11/18/24 13:13 Pulse Ox 97 11/18/24 13:13 FiO2 Intake & Output 11/17/24 11/18/24 11/18/24 18:59 06:59 18:59 Weight 150.593 kg Home Medications: Home Medications Medication Instructions Recorded Confirmed Type Albuterol Inhaler [Ventolin Hfa 1 - 2 puff INHALATION Q4H PRN 11/21/17 11/18/24 History Inhaler] Metoprolol Succinate (ER) [Toprol 50 mg PO QAM 11/21/17 11/18/24 History Xl] Flecainide Acetate [Tambocor] 100 mg PO DIRECTED PRN 01/26/19 11/18/24 History Levothyroxine Sodium 137 mcg PO QAM 04/23/22 11/18/24 History
== END ==
LOC: 3 N SLEEP 13:04
PROVIDERS: ATTEND Internal Medicine
DX: G47.33 Obstructive sleep apnea (adult) (pediatric) (principal); E66.01 Morbid (severe) obesity due to excess calories; E03.9 Hypothyroidism, unspecified; J45.909 Unspecified asthma, uncomplicated; Z68.42 Body mass index [BMI] 45.0-49.9, adult; Z86.79 Personal history of other diseases of the circulatory system; Z98.61 Coronary angioplasty status; Z98.890 Other specified postprocedural states; Z96.652 Presence of left artificial knee joint
CPT/HCPCS: 99212